=== PATIENT | male | born 1995 | race American Indian/Alaskan Native ===

== ENCOUNTER 2017-08-03 10:38 | Emergency (ER) | payer MEDICARE ==
[2017-08-03 11:22] VITALS: BP 107/50
--- NOTE | 2017-08-03 11:31 | Emergency Department Report ---
ED Psych HPI - General Chief Complaint: Psych Stated Complaint: DAVIS EVAL Time Seen by Provider: 08/03/17 11:04 Source: patient Mode of arrival: Ambulatory - History of Present Illness Initial Comments: Patient is 22 years old male history of schizophrenia, bipolar. Patient brought by police for evaluation of homicidal gesture. Patient was brought from the [facility] where he presented for outpatient psychiatric follow-up. Patient stated that he was wearing his head full and he was repeating with the music that was talking about killing people and going to retirement. Patient denied any homicidal gesture he said that he was just repeating what the music saying. He denied any suicidal, auditory or visual hallucination. Patient is calm and in no agitation. MD Complaint: other (homicidal gesture) - Related Data Allergies Allergy/AdvReac Type Severity Reaction Status Date / Time haloperidol [From Haldol] Allergy Seizure Verified 08/03/17 10:54 paliperidone [From Invega] Allergy Seizure Verified 08/03/17 10:54 quetiapine [From Seroquel] Allergy Anaphylaxis Verified 08/03/17 10:54 seafood Allergy Anaphylaxis Uncoded 08/03/17 10:54 ED Review of Systems ROS: Stated complaint: MH EVAL Other details as noted in HPI Comment: All other systems reviewed and negative Constitutional: denies: fever Respiratory: denies: cough Cardiovascular: denies: chest pain, palpitations Gastrointestinal: denies: abdominal pain, nausea, vomiting, diarrhea, constipation Genitourinary: denies: urgency, frequency, hematuria, testicular pain, testicular mass Neurological: denies: headache, weakness, numbness, paresthesias ED Past Medical Hx - Past Medical History Previous Medical History?: Yes Hx Psychiatric Treatment: Yes (Depression, anxiety, MDD) - Social History Smoking Status: Current Every Day Smoker Substance Use Type: None ED Physical Exam - General Limitations: No Limitations General appearance: alert, in no apparent distress - Head Head exam: Present: atraumatic, normocephalic, normal inspection - Eye Eye exam: Present: normal appearance, PERRL, EOMI - ENT ENT exam: Present: normal exam, normal orophraynx, mucous membranes moist - Neck Neck exam: Present: normal inspection, full ROM. Absent: tenderness, meningismus, lymphadenopathy, thyromegaly - Respiratory Respiratory exam: Present: normal lung sounds bilaterally. Absent: respiratory distress, wheezes, rales, rhonchi, stridor, chest wall tenderness, accessory muscle use, decreased breath sounds, prolonged expiratory - Cardiovascular Cardiovascular Exam: Present: regular rate, normal rhythm, normal heart sounds - GI/Abdominal GI/Abdominal exam: Present: soft, normal bowel sounds. Absent: distended, tenderness, guarding, rebound, rigid, mass, bruit, pulsatile mass, hernia - Extremities Exam Extremities exam: Present: normal inspection, full ROM, normal capillary refill - Back Exam Back exam: Present: normal inspection, full ROM. Absent: tenderness, CVA tenderness (R), CVA tenderness (L), muscle spasm, paraspinal tenderness, vertebral tenderness, rash noted - Neurological Exam Neurological exam: Present: alert, oriented X3, CN II-XII intact, normal gait, reflexes normal. Absent: abnormal gait, motor sensory deficit - Psychiatric Psychiatric exam: Present: normal affect, normal mood. Absent: depressed, agitated, anxious, flat affect, manic, homicidal ideation, suicidal ideation - Skin Skin exam: Present: warm, intact, normal color. Absent: cyanosis ED Course Vital Signs 08/03/17 08/03/17 11:20 14:16 Temperature 98 F Pulse Rate 80 Respiratory 18 18 Rate Blood Pressure 107/50 [Left] O2 Sat by Pulse 99 98 Oximetry ED Medical Decision Making - Lab Data Result diagrams: 08/03/17 11:51 08/03/17 11:51 Critical care attestation.: If time is entered above; I have spent that time in minutes in the direct care of this critically ill patient, excluding procedure time. ED Disposition Clinical Impression: Homicidal behavior Disposition: DC/TX-65 PSY HOSP/PSY UNIT Is pt being admited?: No Condition: Stable Referrals: [facility] [Other] - 3-5 Days
[2017-08-03 12:06] LABS: Basophils % (Auto) 0.5 % (0.0-1.8); Eosinophils # (Auto) 0.1 K/mm3 (0.0-0.4); Eosinophils % (Auto) 2.2 % (0.0-4.3); Hemoglobin 12.7 gm/dl (11.8-15.2); Lymphocytes # (Auto) 2.2 K/mm3 (1.2-5.4); Lymphocytes % (Auto) 36.5 % (13.4-35.0); Mean Corpuscular HGB Conc 32 % (32-34); Mean Corpuscular Volume 73 fl (84-94); Monocytes # (Auto) 0.5 K/mm3 (0.0-0.8); Monocytes % (Auto) 8.3 % (0.0-7.3); Platelet Count 185 K/mm3 (140-440); Red Blood Count 5.47 M/mm3 (3.65-5.03); Red Cell Distribution Width 15.7 % (13.2-15.2)
[2017-08-03 12:09] LABS: Mean Corpuscular Hemoglobin 23 pg (28-32)
[2017-08-03 12:21] LABS: Alanine Aminotransferase 11 units/L (7-56); Albumin 4.4 g/dL (3.9-5); BUN/Creatinine Ratio 15; Blood Urea Nitrogen 12 mg/dL (9-20); Hemolysis Index 6
== END 2017-08-03 19:10 ==
LOC: ED 10:38
DX: F31.9 Bipolar disorder, unspecified (principal); F20.9 Schizophrenia, unspecified; Z91.013 Allergy to seafood; Z88.8 Allergy status to other drugs, medicaments and biological substances; F41.9 Anxiety disorder, unspecified; F17.200 Nicotine dependence, unspecified, uncomplicated
CPT/HCPCS: 36415; 80053; 85025; 99283; G0480; 80320

== ENCOUNTER 2017-08-21 10:24 | Emergency (ER) | payer MEDICARE ==
[2017-08-21 10:33] VITALS: BP 117/79
[2017-08-21] MEDS ORDERED: BENADRYL IV ONE (12:33)
--- NOTE | 2017-08-21 12:37 | Emergency Department Report ---
HPI - General Chief Complaint: Allergic Reaction Time Seen by Provider: 08/21/17 12:23 - HPI HPI: 22-year-old male presents with dystonic reaction after Invega administration yesterday. He stated that his mouth was locked and had trouble moving his mouth. Symptoms began last night the morning. He feels better now after taking Claritin. He desires IM Benadryl. He denies shortness of breath. He denies headache. He denies chest pain. Symptoms are moderate in severity. Now resolved. He denies any notable lip swelling. He denies any tongue swelling. Denies any throat closure. ED Past Medical Hx - Past Medical History Hx Psychiatric Treatment: Yes (Depression, anxiety, MDD) - Social History Smoking Status: Current Some Day Smoker Substance Use Type: None ED Review of Systems ROS: Stated complaint: ALLERGIC REACTION Other details as noted in HPI Comment: All other systems reviewed and negative ENT: denies: throat pain Respiratory: denies: cough Cardiovascular: denies: chest pain Physical Exam - Physical Exam Vital Signs: Vital Signs 08/21/17 10:28 Temperature 97.8 F Pulse Rate 84 Respiratory 18 Rate Blood Pressure 117/79 O2 Sat by Pulse 99 Oximetry Physical Exam: General: Well-appearing, no acute distress HEENT: Normocephalic atraumatic pupils equal round and reactive to light anicteric sclera Nose: no rhinorrhea Oropharynx: Clear mucous membranes no lesions normal sized lips/tongue Neck: supple, no meningismus Chest: Clear to auscultation bilaterally no rales rhonchi no wheezes Cardiac: Regular rate and rhythm no murmurs no rubs no gallops Abdomen: Soft nontender nondistended positive bowel sounds no guarding Extremities: No cyanosis no clubbing no edema Neuro: Moves all extremities 4, no gross deficits Psychiatric: Alert and oriented 4 normal affect normal judgment normal insight ED Course Vital Signs 08/21/17 10:28 Temperature 97.8 F Pulse Rate 84 Respiratory 18 Rate Blood Pressure 117/79 O2 Sat by Pulse 99 Oximetry ED Medical Decision Making - Medical Decision Making Mr. Rossi presents with dystonic reaction after Invega administration. His symptoms have resolved prior to treatment. I have ordered IM benadryl. dc'd home in good condition Critical care attestation.: If time is entered above; I have spent that time in minutes in the direct care of this critically ill patient, excluding procedure time. ED Disposition Clinical Impression: Dystonic drug reaction Disposition: DC-01 TO HOME OR SELFCARE Is pt being admited?: No Does the pt Need Aspirin: No Condition: Stable Instructions: Adverse Drug Reaction (ED) Referrals: PRIMARY CARE, [Primary Care Provider] - 3-5 Days Time of Disposition: 12:37
== END 2017-08-21 12:44 | disposition home or self-care (01) ==
LOC: ED 10:24
DX: G24.09 Other drug induced dystonia (principal); F32.9 Major depressive disorder, single episode, unspecified; F41.9 Anxiety disorder, unspecified; F17.200 Nicotine dependence, unspecified, uncomplicated
CPT/HCPCS: 96374; 99282; J1200